=== PATIENT | female | born 2000 | race Two or more races ===

== ENCOUNTER 2020-08-11 09:40 | Emergency (ER) | payer OTHER ==
[~2020-08-11] VITALS: Ht 162.6 cm; Wt 93.0 kg
== END 2020-08-11 11:46 | disposition home or self-care (01) ==
LOC: ER 09:40
DX: S61.241A Puncture wound with foreign body of left index finger without damage to nail, initial encounter (principal); W46.0XXA Contact with hypodermic needle, initial encounter; Y93.89 Activity, other specified; Y92.69 Other specified industrial and construction area as the place of occurrence of the external cause; Y99.8 Other external cause status

== ENCOUNTER 2020-08-15 07:47 | Emergency (ER) | payer OTHER ==
[~2020-08-15] VITALS: Ht 165.1 cm; Wt 93.0 kg
== END 2020-08-15 11:37 | disposition home or self-care (01) ==
LOC: ER 07:47
DX: O26.851 Spotting complicating pregnancy, first trimester (principal); O36.80X0 Pregnancy with inconclusive fetal viability, not applicable or unspecified; Z3A.01 Less than 8 weeks gestation of pregnancy